=== PATIENT | male | born 1995 | race Caucasian/White ===

== ENCOUNTER 2017-09-30 22:30 | Emergency (ER) | payer MEDICAID, OTHER ==
[~2017-09-30] VITALS: Ht 167.6 cm; Wt 70.3 kg
[~2017-09-30 22:30] MED LIST: NKM
[2017-09-30] MEDS ORDERED: IBUPROFEN600 MG ORAL (22:54)
--- NOTE | 2017-09-30 22:54 | Emergency Room Report ---
History of Present Illness General Chief Complaint: Lower Extremity Injury Source: Patient Present Illness HPI Is a 21-year-old male with no past medical history except for to testicular torsion. He presents with chief complaint of left knee pain. He injured it about 3 years ago. And was running a couple days ago when he felt pain to the lateral aspect of his left knee. Mild swelling. No new trauma. No fever chills but no nausea no vomiting. Worse with sinusitis movement. No other complaint. Allergies: Coded Allergies: No Known Allergies (Unverified , 01/14/16) Patient History Past Medical History: see triage record, old chart reviewed Past Surgical History: none Pertinent Family History: none Social History: Denies: smoking Immunizations: other Reviewed Nursing Documentation: PMH: Agreed; PSxH: Agreed Nursing Documentation-PMH Hx Cardiac Problems: Yes - 2012 Surgery for Testicle Torsion Review of Systems Eye: Denies: eye pain, blurred vision ENT: Denies: ear pain, nose congestion, throat swelling Respiratory: Denies: cough, shortness of breath Cardiovascular: Denies: chest pain, palpitations Gastrointestinal: Denies: abdominal pain, diarrhea, nausea, vomiting Musculoskeletal: Reports: joint pain; Denies: back pain Skin: Denies: rash Neurological: Denies: headache, numbness Endocrine: Denies: increased thirst, increased urine Hematologic/Lymphatic: Denies: easy bruising All Other Systems: negative except mentioned in HPI Physical Exam Vital Signs Date Time Temp Pulse Resp B/P (MAP) Pulse Ox O2 Delivery O2 Flow Rate FiO2 09/30/17 22:33 98.6 16 130/76 98 98.6 vitals normal Sp02 EP Interpretation: reviewed, normal General Appearance: well appearing, no apparent distress, alert Head: normocephalic, atraumatic Eyes: bilateral eye PERRL, bilateral eye EOMI ENT: hearing grossly normal, normal pharynx Neck: full range of motion, supple, no meningismus Respiratory: chest non-tender, lungs clear, normal breath sounds Cardiovascular #1: regular rate, rhythm, no murmur Gastrointestinal: normal bowel sounds, non tender, no mass, no organomegaly, no bruit, non-distended Musculoskeletal: back normal, gait/station normal, normal range of motion, other - Left knee: Mild tenderness to the lateral collateral ligament. Knee is stable. No effusion. Full range of motion. Sensation normal. Neurologic: alert, oriented x3 Psychiatric: mood/affect normal Skin: warm/dry Procedures Splinting Splinting : Consent: Verbal Pre-Made Type: MARIANA wrap Pre-Proc Neuro Vasc Exam: normal Post-Proc Neuro Vasc Exam: normal Patient Tolerated: Well Complications: None Medical Decision Making Diagnostic Impression: Primary Impression: Left knee sprain Qualified Codes: S83.422A - Sprain of lateral collateral ligament of left knee , initial encounter ER Course Patient with knee injury. No evidence of any fracture dislocation. Recommend MRI as an outpatient. We'll discharge home. No evidence of any septic joint. Last Vital Signs Date Time Temp Pulse Resp B/P (MAP) Pulse Ox O2 Delivery O2 Flow Rate FiO2 09/30/17 22:33 98.6 16 130/76 98 98.6 Status: unchanged Disposition: HOME, SELF-CARE Condition: Stable Scripts Ibuprofen* (MOTRIN*) 600 Mg Tablet 600 MG ORAL THREE TIMES A DAY, #30 TAB 0 Refills Prov: SAE ARGUETA M.D. 09/30/17 Patient Instructions: Knee Sprain Additional Instructions: Follow-up with your doctor in 7 days. If continue with pain and swelling, may knee MRI. Return if symptom worsen. SAE ARGUETA M.D. Sep 30, 2017 22:54
[2017-09-30 22:59] VITALS: BP 130/76
== END 2017-09-30 22:59 | disposition home or self-care (01) ==
LOC: EMR 22:41
DX: S83.422A Sprain of lateral collateral ligament of left knee, initial encounter (principal); Y93.02 Activity, running
CPT/HCPCS: 99283